=== PATIENT | male | born 1975 | race Caucasian/White ===

== ENCOUNTER 2017-04-05 07:47 | Emergency (ER) | payer MEDICARE, MEDICAID ==
[~2017-04-05] VITALS: Ht 6122.6 cm; Wt 87.0 kg
[~2017-04-05 07:47] MED LIST: PALI39DI IM
[2017-04-05] MEDS ORDERED: LIDOcaine 1.5% w/epinephrine 1:200,000 5ml ampul IJ ONE (08:15)
[2017-04-05] MEDS ORDERED: SULF1TAB49 PO (09:20)
[2017-04-05 09:43] VITALS: BP 133/97
== END 2017-04-05 09:46 | disposition home or self-care (01) ==
LOC: ER 07:47
DX: L02.01 Cutaneous abscess of face (principal); F17.210 Nicotine dependence, cigarettes, uncomplicated; Z88.8 Allergy status to other drugs, medicaments and biological substances
CPT/HCPCS: 10060; 99284; A6266; A6449; J3490

== ENCOUNTER 2020-03-26 10:37 | Emergency (ER) | payer MEDICARE, MEDICAID ==
[~2020-03-26] VITALS: Ht 190.5 cm; Wt 83.2 kg
[2020-03-26] MEDS ORDERED: ketorolac trometh inj. 60 MG/2 ML VIAL IM ONE (11:25)
[2020-03-26] MEDS ORDERED: HYDROcodone/acetaminophen 10/325mg tab PO ONE (11:25)
[2020-03-26] MEDS ORDERED: HYDR-3972 PO (11:32)
[2020-03-26 11:51] VITALS: BP 130/70
== END 2020-03-26 12:10 | disposition home or self-care (01) ==
LOC: ER 10:37
DX: S93.692A Other sprain of left foot, initial encounter (principal); F20.9 Schizophrenia, unspecified; F17.200 Nicotine dependence, unspecified, uncomplicated; Z72.89 Other problems related to lifestyle; Z88.8 Allergy status to other drugs, medicaments and biological substances; Z79.899 Other long term (current) drug therapy; Z91.018 Allergy to other foods; W01.0XXA Fall on same level from slipping, tripping and stumbling without subsequent striking against object, initial encounter; Y93.89 Activity, other specified; Y92.89 Other specified places as the place of occurrence of the external cause; Y99.8 Other external cause status
CPT/HCPCS: 73630; 96372; 99284; J1885

== ENCOUNTER 2020-05-27 01:17 | Emergency (ER) | payer MEDICARE, MEDICAID ==
[~2020-05-27] VITALS: Ht 175.3 cm; Wt 80.0 kg
[2020-05-27] MEDS ORDERED: magnesium oxide 400mg tablet PO ONE (01:30)
[2020-05-27] MEDS ORDERED: phenobarbital inj 260 MG in normal saline 100ml IV soln 100 ML IV ONE (01:30)
[2020-05-27] MEDS ORDERED: thiamine 100mg tablet PO ONE (01:30)
[2020-05-27] MEDS ORDERED: normal saline 1000ML IV soln IVB ONE (01:30)
[2020-05-27 02:07] LABS: BASOPHILS # (AUTO) 0.1 X10'3 (0-0.2); BASOPHILS % (AUTO) 0.6 % (0-1); EOSINOPHILS # (AUTO) 0.3 X10'3 (0-0.9); EOSINOPHILS % (AUTO) 3.1 % (0-6); HEMATOCRIT 46.5 % (42.0-52.0); HEMOGLOBIN 15.7 g/dl (14.0-17.9); LYMPHOCYTES # (AUTO) 2.2 X10'3 (1.1-4.8); LYMPHOCYTES % (AUTO) 25.4 % (21-51); MEAN CORPUSCULAR HEMOGLOBIN 32.8 PG (27.0-31.0); MEAN CORPUSCULAR HGB CONC 33.8 g/dL (33.0-36.5); MEAN CORPUSCULAR VOLUME 96.9 FL (78-98); MEAN PLATELET VOLUME 7.8 FL (7.4-10.4); MONOCYTES # (AUTO) 1.3 X10'3 (0-0.9); MONOCYTES % (AUTO) 14.6 % (2-12); NEUTROPHILS # (AUTO) 4.9 X10'3 (1.8-7.7); NEUTROPHILS % (AUTO) 56.3 % (42-75); PLATELET COUNT 228 X10'3 (140-440); RED CELL DISTRIBUTION WIDTH 13.6 % (11.5-14.5); WHITE BLOOD COUNT 8.8 X10'3 (4.5-11.0)
[2020-05-27 02:19] LABS: ALANINE AMINOTRANSFERASE 76 U/L (12-78); ALBUMIN 3.8 G/DL (3.4-5.0); ALBUMIN/GLOBULIN RATIO 1.1 (1.1-1.5); ALKALINE PHOSPHATASE 75 IU/L (46-116); ANION GAP 15 (8-16); ASPARTATE AMINO TRANSFERASE 80 U/L (10-37); BILIRUBIN,TOTAL 0.5 MG/DL (0.1-1.0); BLOOD UREA NITROGEN 9 MG/DL (7-18); BUN/CREATININE RATIO 11.7 (5.4-32.0); CALCIUM 9.1 MG/DL (8.5-10.1); CHLORIDE 99 MMOL/L (99-107); CREATININE 0.77 MG/DL (0.60-1.10); ETHANOL 0.165 GM/DL (0.0-0.010); GLUCOSE 95 MG/DL (70-104); MAGNESIUM 2.1 MG/DL (1.5-2.4); POTASSIUM 3.7 MMOL/L (3.5-5.1); SODIUM 138 MMOL/L (135-145); TOTAL CARBON DIOXIDE 23.9 MMOL/L (24-32); TOTAL PROTEIN 7.2 G/DL (6.4-8.2); eGFR > 90 ML/MIN
[2020-05-27] MEDS ORDERED: phenobarbital inj 130 MG in normal saline 100ml IV soln 100 ML IV ONE (02:30)
[2020-05-27 03:02] LABS: TROPONIN I < 0.04 NG/ML (0.0-0.05)
[2020-05-27 04:05] VITALS: BP 140/90
== END 2020-05-27 04:07 | disposition home or self-care (01) ==
LOC: ER 01:17
DX: F10.230 Alcohol dependence with withdrawal, uncomplicated (principal); F20.9 Schizophrenia, unspecified; Z71.6 Tobacco abuse counseling; Z72.89 Other problems related to lifestyle; Z88.8 Allergy status to other drugs, medicaments and biological substances; Z79.899 Other long term (current) drug therapy; Y90.0 Blood alcohol level of less than 20 mg/100 ml
CPT/HCPCS: 36415; 80053; 80320; 83735; 84484; 85025; 93005; 96365; 96366; 99284; 99406; J2560; J7030

== ENCOUNTER 2020-08-16 22:35 | Emergency (ER) | payer MEDICARE, MEDICAID ==
[~2020-08-16] VITALS: Ht 182.9 cm; Wt 59.6 kg
[2020-08-16 22:40] VITALS: BP 134/87
--- NOTE | 2020-08-17 01:19 | NUR ---
PT IS NOW SIMPLY REQUESTING MEDICAL CLEARANCE TO GO TO [facility] IN THE MORNING
--- NOTE | 2020-08-17 01:25 | NUR ---
pt to room, assumed care
== END 2020-08-17 02:35 | disposition home or self-care (01) ==
LOC: ER 22:36
DX: F10.129 Alcohol abuse with intoxication, unspecified (principal); F32.9 Major depressive disorder, single episode, unspecified; F20.9 Schizophrenia, unspecified; R46.0 Very low level of personal hygiene; Z56.0 Unemployment, unspecified; Z88.8 Allergy status to other drugs, medicaments and biological substances; Z79.899 Other long term (current) drug therapy; Y90.9 Presence of alcohol in blood, level not specified
CPT/HCPCS: 99285

== ENCOUNTER 2020-11-11 06:39 | Emergency (ER) | payer MEDICARE, MEDICAID ==
[~2020-11-11] VITALS: Ht 190.5 cm; Wt 83.2 kg
[2020-11-11 06:50] VITALS: BP 174/90
[2020-11-11] MEDS ORDERED: LORazepam 1 MG tablet PO ONE (06:50)
[2020-11-11] MEDS ORDERED: OLANZapine **IM** 10 mg inj. IM ONE (06:50)
[2020-11-11] MEDS ORDERED: LORazepam 0.5 MG tablet PO ONE (07:00)
== END 2020-11-11 07:06 | disposition left against medical advice (07) ==
LOC: ER 06:39
DX: F10.129 Alcohol abuse with intoxication, unspecified (principal); R14.0 Abdominal distension (gaseous); F20.9 Schizophrenia, unspecified; Z72.89 Other problems related to lifestyle; Z88.8 Allergy status to other drugs, medicaments and biological substances; Z79.899 Other long term (current) drug therapy; Y90.9 Presence of alcohol in blood, level not specified
CPT/HCPCS: 99283

== ENCOUNTER 2020-12-19 10:15 | Emergency (ER) | payer MEDICARE, MEDICAID ==
[~2020-12-19] VITALS: Ht 190.5 cm; Wt 86.4 kg
[2020-12-19 10:44] VITALS: BP 134/88
== END 2020-12-19 11:52 | disposition home or self-care (01) ==
LOC: ER 10:15
DX: F10.129 Alcohol abuse with intoxication, unspecified (principal); Z72.89 Other problems related to lifestyle; Z88.8 Allergy status to other drugs, medicaments and biological substances; Z79.899 Other long term (current) drug therapy; Y90.9 Presence of alcohol in blood, level not specified
CPT/HCPCS: 99281

== ENCOUNTER 2023-02-07 15:01 | Emergency (ER) | payer MEDICARE, MEDICAID ==
[~2023-02-07] VITALS: Ht 188 cm; Wt 71.3 kg
[~2023-02-07 15:01] MED LIST changes: +LITH150C8 PO; -PALI39DI IM; +UNABLE TO OBTAIN
[2023-02-07 15:07] VITALS: BP 128/80; PULSE 70; TEMP 98; O2SAT 97
[2023-02-07] MEDS ORDERED: AMOX-117 PO (15:13)
[2023-02-07 15:17] VITALS: RESP 18
== END 2023-02-07 15:22 | disposition home or self-care (01) ==
LOC: ER 15:02
DX: S81.832A Puncture wound without foreign body, left lower leg, initial encounter (principal); W54.0XXA Bitten by dog, initial encounter; Y93.89 Activity, other specified; Y92.89 Other specified places as the place of occurrence of the external cause; Y99.8 Other external cause status
CPT/HCPCS: 99283